=== PATIENT | male | born 2000 | race African-American/Black ===

== ENCOUNTER 2021-05-08 11:52 | Emergency (ER) | payer BC ==
[~2021-05-08] VITALS: Ht 172.7 cm; Wt 95.3 kg
[2021-05-08] MEDS ORDERED: SSD CREAM 1% 5050 GM TOP (13:39)
[2021-05-08] MEDS ORDERED: HYDROCODON-ACE1 EAC7 PO (13:39)
[2021-05-08 13:52] VITALS: BP 139/82
== END 2021-05-08 13:55 | disposition home or self-care (01) ==
LOC: ER 11:52
DX: T23.202A Burn of second degree of left hand, unspecified site, initial encounter (principal); T23.201A Burn of second degree of right hand, unspecified site, initial encounter; X10.2XXA Contact with fats and cooking oils, initial encounter; Y93.G3 Activity, cooking and baking; Y92.090 Kitchen in other non-institutional residence as the place of occurrence of the external cause; Y99.8 Other external cause status

== ENCOUNTER → 2021-05-17 | Outpatient (CLI) | payer OTHER ==
[~2021-05-17] MED LIST: HYDROCODON-ACE1 EAC7 PO; SSD CREAM 1% 5050 GM TOP
== END ==
LOC: HYPER 08:16
PROVIDERS: ATTEND Emergency Medicine
DX: T23.262A Burn of second degree of back of left hand, initial encounter (principal); T23.202A Burn of second degree of left hand, unspecified site, initial encounter; T23.201A Burn of second degree of right hand, unspecified site, initial encounter; T23.261A Burn of second degree of back of right hand, initial encounter; G89.11 Acute pain due to trauma; R60.0 Localized edema; T31.0 Burns involving less than 10% of body surface; X08.8XXA Exposure to other specified smoke, fire and flames, initial encounter; Y93.89 Activity, other specified; Y92.098 Other place in other non-institutional residence as the place of occurrence of the external cause; Y99.8 Other external cause status

== ENCOUNTER → 2021-05-24 | Outpatient (CLI) | payer OTHER | LOC: HYPER 09:41 | PROVIDERS: ATTEND Internal Medicine Hematology | DX: T23.262D Burn of second degree of back of left hand, subsequent encounter (principal); T23.202D Burn of second degree of left hand, unspecified site, subsequent encounter; T23.201D Burn of second degree of right hand, unspecified site, subsequent encounter; T23.261D Burn of second degree of back of right hand, subsequent encounter; G89.11 Acute pain due to trauma; R60.0 Localized edema; T31.0 Burns involving less than 10% of body surface; X08.8XXD Exposure to other specified smoke, fire and flames, subsequent encounter ==

== ENCOUNTER → 2021-05-31 | Outpatient (CLI) | payer OTHER | LOC: HYPER 09:33 | PROVIDERS: ATTEND Emergency Medicine Emergency Medical Services | DX: T23.262D Burn of second degree of back of left hand, subsequent encounter (principal); T23.202D Burn of second degree of left hand, unspecified site, subsequent encounter; T23.201D Burn of second degree of right hand, unspecified site, subsequent encounter; T23.261D Burn of second degree of back of right hand, subsequent encounter; G89.11 Acute pain due to trauma; R60.0 Localized edema; T31.0 Burns involving less than 10% of body surface; X08.8XXD Exposure to other specified smoke, fire and flames, subsequent encounter ==

== ENCOUNTER → 2021-06-13 | Outpatient (CLI) | payer OTHER | LOC: HYPER 08:11 | PROVIDERS: ATTEND Emergency Medicine | DX: T23.262D Burn of second degree of back of left hand, subsequent encounter (principal); T23.261D Burn of second degree of back of right hand, subsequent encounter; T23.012D Burn of unspecified degree of left thumb (nail), subsequent encounter; T31.0 Burns involving less than 10% of body surface; G89.11 Acute pain due to trauma; R60.0 Localized edema; X19.XXXD Contact with other heat and hot substances, subsequent encounter ==